=== PATIENT | female | born 1945 | race Caucasian/White ===

== ENCOUNTER 2022-06-19 17:15 | Inpatient (IN) ==
--- NOTE | 2022-06-19 18:23 | XRay Report ---
XR chest 1V not portable HISTORY: Generalized abdominal pain. bowel blockage COMPARISON: None. FINDINGS: No pneumothorax. No pleural effusions. The cardiac silhouette is top normal in size. No foc al lung consolidations to suggest a pneumonia. No evidence for pulmonary edema. There are surgical cl ips within the left upper quadrant. IMPRESSION: No acute process. ACT 112: Negative or not required by law. Electronically signed by: Lino Burton M.D. 06/19/2022 6:22 PM
[2022-06-19 18:24] LABS: Basophils # (auto) 0.02 K/uL (0-0.2); Basophils % (auto) 0.2 %; Hematocrit (blood only) 36.9 % (37.0-47.0); Immature Granulocytes # (auto) 0.06 K/uL (0.01-0.20); Immature Granulocytes % (auto) 0.5 %; Lymphocytes # (auto) 0.69 K/uL (1.2-3.4); Lymphocytes % (auto) 5.5 %; Mean Corpuscular Hemoglobin 28.7 pg (25.0-34.0); Mean Corpuscular Hgb Conc 35.2 g/dL (32.0-36.0); Mean Corpuscular Volume 81.5 fL (80.0-100.0); Mean Platelet Volume 9.9 fL (9.4-12.4); Monocytes # (auto) 0.52 K/uL (0.11-0.59); Monocytes % (auto) 4.1 %; Neutrophils # (auto) 11.37 K/uL (1.40-6.50); Neutrophils % (auto) 89.7 %; Platelet Count 325 K/uL (130-400); RDW Coefficient of Variation 11.9 % (11.5-14.5); RDW Standard Deviation 35.8 fL (36.4-46.3); Red Blood Count 4.53 M/uL (4.20-5.40); White Blood Count 12.66 K/ul (4.8-10.8)
[2022-06-19 18:42] LABS: Alanine Aminotransferase 16 U/L (7-52); Albumin Globulin Ratio 1.8 (0.9-2); Albumin Level 4.4 gm/dl (3.4-5.0); Alkaline Phosphatase 54 U/L (34-104); Anion Gap 9 (3-11); Aspartate Aminotransferase 22 U/L (13-39); BUN Creatinine Ratio 19.3 (10-20); Bilirubin,Total 1.6 mg/dl (0.2-1.0); Blood Urea Nitrogen 11 mg/dl (6-23); Calcium 8.4 mg/dl (8.6-10.3); Carbon Dioxide 24 mmol/L (21-32); Chloride 89 mmol/L (98-107); Est GFR (African American) 102.2 ml/min; Est GFR (Non-African American) 88.2 ml/min; Globulin 2.5 gm/dl (2.5-4.0); Glucose 141 mg/dl (70-99(Fasting)); Potassium 3.9 mmol/L (3.5-5.1); Sodium 122 mmol/L (136-145); Total Protein 6.9 gm/dl (6.0-8.3)
--- NOTE | 2022-06-19 19:21 | Emergency Department Note ---
Impression & Plan Acute hyponatremia, Nausea & vomiting, Constipation, Acute dehydration ED Provider Note NAME: JOSE SHANNON AGE: 77 SEX: F : 1945 ARRIVES VIA: Ambulance INFORMANT: Patient, ED PROVIDER(S): Telly Juan MD CHIEF COMPLAINT: Nausea vomiting MEDICAL DECISION MAKING: Patient presents due to concern for nausea vomiting acute relating that she has a blockage. After review of the patient's most recent ED visit from a year ago the patient did have constipation but no bowel obstruction. IV was established blood work was obtained the patient was noted to have hyponatremia. Patient has mild white count of 12 with a normal hemoglobin and platelet count. Kidney function is otherwise unremarkable. Sodium of 122. No priors for comparison. LFTs with mild elevation in bilirubin bilirubin 1.6. Lipase is not elevated. COVID-negative. Patient has a soft abdomen no current vomiting. Patient was ordered urine and serum awesome's as well as urine electrolytes. I did speak the on-call hospitalist Dr. Pace and the patient was admitted to the medicine service. Prior /Outside records reviewed: None Differential diagnosis: Gastroenteritis, food borne illness, infections, appendicitis, diverticulitis, inflammatory bowel disease, obstruction, GI bleed, biliary pathology, volvulus, as well as other pathologies. Diagnostics, as interpreted by me: ECG: None Cardiac monitoring: An order was placed for continuous cardiac monitoring. The monitor shows a rate of 77 with sinus rhythm. Patient was placed on pulse oximetry Medical decision rules: None Imaging studies: See below HPI: Patient presents due to concern for nausea and vomiting which occurred in the early afternoon around 5 PM. The patient had called a family member relating that she was having vomiting. The patient does relate that she thinks she has a "blockage." Patient states that she had not had a bowel movement approximately 3 days. The patient relates that when she was seen here in the emergency department last year the patient was given something and had improvement in her symptoms. The patient denies any prior surgery for blockage and is unsure as to whether not she is actually had a bowel obstruction. Patient denies any chest pains or shortness of breath. No known sick contacts or recent travel. No blood in the vomit. The patient did have multiple episodes of emesis and due to this concern with the family number had arrived ambulance was called and the patient did present here for further evaluation and treatment. No alcohol or tobacco use. No recent falls. The family ember did relate the patient was able to have a small bowel movement prior to arrival. PAST MEDICAL HISTORY: See Below PAST SURGICAL HISTORY: See Below SOCIAL HISTORY: See Below HOME MEDICATIONS: See Below ALLERGIES: See Below VITALS: See Below PHYSICAL EXAMINATION: GENERAL: NAD, wearing a mask, non-toxic. EYE EXAM: Normal conjunctiva. PERRL, no anisocoria and EOM's grossly intact w/o pain. NECK: Supple, no nuchal rigidity, no adenopathy, non-tender. No signs of meningismus. FROM of the neck with good chin to chest and neck extension. No stridor. LUNGS: Clear to auscultation. Normal chest wall mechanics. HEART: NSR, no MRG. ABDOMEN: Abdomen soft, non-tender, no masses, no rebound or guarding. BACK: No CVA TTP. SKIN: No rashes and no bruising. UPPER EXTREMITIES: Upper extremities are grossly normal. LOWER EXTREMITIES: Grossly normal, no edema. NEURO EXAM: A&O x3, cranial nerves II-XII grossly intact, normal speech, moves all 4 extremities. Past Med/Surg History Medical History Hyperlipidemia Osteoporosis Solitary kidney Surgical History History of colonoscopy History of hysterectomy History of kidney removal Left kidney. 1988 Family History Brother Stroke Mother Dementia Other Cancer Social History Smoking Status: Never smoker Smoking End Date: Quit >50 years ago. Prior reports smoked a few cigarettes intermittently; Second Hand Exposure: No; Hx Alcohol Use: No Hx Substance Use: No Preferred Language: Yi Communication Ability: Effective Environmental Engineering Manager Required: No Beliefs That Will Affect Care: None Current Living Situation: Spouse Other Information That Helps Us Care for You: No Feels Safe at Home: Yes Safety Concerns: Feels Safe At This Time Assistive Devices: Glasses Allergies Allergies Allergy/AdvReac Type Severity Reaction Status Date / Time No Known Allergies Allergy Unverified 06/10/21 16:02 Home Meds Home Medications Medication Instructions Recorded Confirmed alendronate 70 mg tablet 70 mg PO WK 06/10/21 06/19/22 calcium carbonate 500 mg calcium 500 mg PO QAM 06/10/21 06/19/22 (1,250 mg) tablet cholecalciferol (vitamin D3) 10 10 mcg PO QAM 06/10/21 06/19/22 mcg (400 unit) tablet (Vitamin D3) glucosamine sulf dipot 1 cap PO PM 06/10/21 06/19/22 chlr,msm,chond 550 mg-C 30 mg-adele 1 mg capsule (Glucosamine Chondroitin) lovastatin 40 mg tablet 40 mg PO DAILY 06/10/21 06/19/22 omega-3 fatty acids 1,000 mg 1,000 mg PO BID 06/10/21 06/19/22 capsule vitamin E 200 unit capsule 400 unit PO QAM 06/10/21 06/19/22 Results & Data (ED) Vital Signs Vital Signs - 24 hr 06/19/22 17:27 06/19/22 19:38 06/19/22 20:20 Temperature 36.4 C L Temperature Source Temporal Artery Scan Pulse Rate 74 Pulse Rate [Apical] 71 74 Respiratory Rate 20 15 18 Respiratory Effort / Characteristics Non-Labored Non-Labored Respiratory Depth Normal Blood Pressure 167/80 H Blood Pressure [Right Arm] 139/102 H 159/80 H Blood Pressure Mean 109 Blood Pressure Mean [Right Arm] 114 106 Blood Pressure Position [Right Arm] Pulse Oximetry 98 97 96 Oxygen Delivery Method Room Air Room Air Sepsis Recent Fever Within 48 Hours No Sepsis New/Unexplained Change in Mental Status N/A Sepsis Action Taken by Nursing No Action Required 06/19/22 19:33 06/19/22 22:05 06/19/22 22:16 Temperature Temperature Source Pulse Rate 71 Pulse Rate [Apical] 74 84 Respiratory Rate 12 18 Respiratory Effort / Characteristics Respiratory Depth Blood Pressure Blood Pressure [Right Arm] 163/86 H 164/80 H Blood Pressure Mean Blood Pressure Mean [Right Arm] 111 108 Blood Pressure Position [Right Arm] Lying Pulse Oximetry 97 97 Oxygen Delivery Method Room Air Room Air Sepsis Recent Fever Within 48 Hours Sepsis New/Unexplained Change in Mental Status Sepsis Action Taken by Halfway Medications Current Medication List: was personally reviewed by me Laboratory Data Attestation: I reviewed the patient's lab results. 06/19/22 17:45 04/05/23 17:45 Lab Results 06/19/22 06/19/22 06/19/22 Range/Units 17:45 17:45 17:45 WBC 12.66 H (4.8-10.8) K/ul RBC 4.53 (4.20-5.40) M/uL Hgb 13.0 (12.0-16.0) g/dl Hct 36.9 L (37.0-47.0) % MCV 81.5 (80.0-100.0) fL MCH 28.7 (25.0-34.0) pg MCHC 35.2 (32.0-36.0) g/dL RDW Std Deviation 35.8 L (36.4-46.3) fL RDW Coeff of Laureano 11.9 (11.5-14.5) % Plt Count 325 (130-400) K/uL MPV 9.9 (9.4-12.4) fL Immature Gran % (Auto) 0.5 % Neut % (Auto) 89.7 % Lymph % (Auto) 5.5 % Dickinson % (Auto) 4.1 % Eos % (Auto) 0.0 % Baso % (Auto) 0.2 % Neut # (Auto) 11.37 H (1.40-6.50) K/uL Lymph # (Auto) 0.69 L (1.2-3.4) K/uL Dickinson # (Auto) 0.52 (0.11-0.59) K/uL Eos # (Auto) 0.00 (0-0.50) K/uL Baso # (Auto) 0.02 (0-0.2) K/uL Immature Gran # (Auto) 0.06 (0.01-0.20) K/uL Sodium 122 L (136-145) mmol/L Potassium 3.9 (3.5-5.1) mmol/L Chloride 89 L (98-107) mmol/L Carbon Dioxide 24 (21-32) mmol/L Anion Gap 9 (3-11) BUN 11 (6-23) mg/dl Creatinine 0.57 L (0.6-1.2) mg/dl Est Cr Clr Drug Dosing Not Reportable Est GFR ( Amer) 102.2 ml/min Est GFR (Non-Af Amer) 88.2 ml/min BUN/Creatinine Ratio 19.3 (10-20) Glucose 141 H (70-99(Fasting)) mg/dl Estimat Average Glucose mg/dl Hemoglobin A1c (4.5-5.6) % Osmolality (280-300) mOsm/kg Calcium 8.4 L (8.6-10.3) mg/dl Magnesium 1.9 (1.7-2.4) mg/dl Total Bilirubin 1.6 H (0.2-1.0) mg/dl AST 22 (13-39) U/L ALT 16 (7-52) U/L Alkaline Phosphatase 54 (34-104) U/L Total Protein 6.9 (6.0-8.3) gm/dl Albumin 4.4 (3.4-5.0) gm/dl Globulin 2.5 (2.5-4.0) gm/dl Albumin/Globulin Ratio 1.8 (0.9-2) Lipase 8 L (11-82) U/L TSH 1.023 (0.300-4.500) uIu/ml Urine Color Urine Appearance (Clear) Urine pH (4.5-7.5) Ur Specific [place] (1.000-1.030) Urine Protein (Negative) Urine Glucose (UA) (Negative) Urine Ketones (Negative) Urine Blood (Negative) Urine Nitrite (Negative) Urine Bilirubin (Negative) Urine Urobilinogen (Negative) Ur Leukocyte Esterase (Negative) Urine WBC (Auto) (0-5) /hpf Urine RBC (Auto) (0-4) /hpf U Hyaline Cast (Auto) (0-5) /lpf U Epithel Cells (Auto) (0-5) /lpf Urine Bacteria (Auto) (Negative) Urine Osmolality (500-800) mOsm/kg Ur Random Sodium mmol/L SARS-CoV-2, RNA, NAAT (NEGATIVE) 06/19/22 06/19/22 06/19/22 Range/Units 17:45 17:54 19:36 WBC (4.8-10.8) K/ul RBC (4.20-5.40) M/uL Hgb (12.0-16.0) g/dl Hct (37.0-47.0) % MCV (80.0-100.0) fL MCH (25.0-34.0) pg MCHC (32.0-36.0) g/dL RDW Std Deviation (36.4-46.3) fL RDW Coeff of Laureano (11.5-14.5) % Plt Count (130-400) K/uL MPV (9.4-12.4) fL Immature Gran % (Auto) % Neut % (Auto) % Lymph % (Auto) % Dickinson % (Auto) % Eos % (Auto) % Baso % (Auto) % Neut # (Auto) (1.40-6.50) K/uL Lymph # (Auto) (1.2-3.4) K/uL Dickinson # (Auto) (0.11-0.59) K/uL Eos # (Auto) (0-0.50) K/uL Baso # (Auto) (0-0.2) K/uL Immature Gran # (Auto) (0.01-0.20) K/uL Sodium (136-145) mmol/L Potassium (3.5-5.1) mmol/L Chloride (98-107) mmol/L Carbon Dioxide (21-32) mmol/L Anion Gap (3-11) BUN (6-23) mg/dl Creatinine (0.6-1.2) mg/dl Est Cr Clr Drug Dosing Est GFR ( Amer) ml/min Est GFR (Non-Af Amer) ml/min BUN/Creatinine Ratio (10-20) Glucose (70-99(Fasting)) mg/dl Estimat Average Glucose 111 mg/dl Hemoglobin A1c 5.5 (4.5-5.6) % Osmolality 256 L (280-300) mOsm/kg Calcium (8.6-10.3) mg/dl Magnesium (1.7-2.4) mg/dl Total Bilirubin (0.2-1.0) mg/dl AST (13-39) U/L ALT (7-52) U/L Alkaline Phosphatase (34-104) U/L Total Protein (6.0-8.3) gm/dl Albumin (3.4-5.0) gm/dl Globulin (2.5-4.0) gm/dl Albumin/Globulin Ratio (0.9-2) Lipase (11-82) U/L TSH (0.300-4.500) uIu/ml Urine Color Urine Appearance (Clear) Urine pH (4.5-7.5) Ur Specific [place] (1.000-1.030) Urine Protein (Negative) Urine Glucose (UA) (Negative) Urine Ketones (Negative) Urine Blood (Negative) Urine Nitrite (Negative) Urine Bilirubin (Negative) Urine Urobilinogen (Negative) Ur Leukocyte Esterase (Negative) Urine WBC (Auto) (0-5) /hpf Urine RBC (Auto) (0-4) /hpf U Hyaline Cast (Auto) (0-5) /lpf U Epithel Cells (Auto) (0-5) /lpf Urine Bacteria (Auto) (Negative) Urine Osmolality (500-800) mOsm/kg Ur Random Sodium mmol/L SARS-CoV-2, RNA, NAAT NEGATIVE (NEGATIVE) 06/19/22 06/19/22 06/19/22 Range/Units 20:06 21:34 21:34 WBC (4.8-10.8) K/ul RBC (4.20-5.40) M/uL Hgb (12.0-16.0) g/dl Hct (37.0-47.0) % MCV (80.0-100.0) fL MCH (25.0-34.0) pg MCHC (32.0-36.0) g/dL RDW Std Deviation (36.4-46.3) fL RDW Coeff of Laureano (11.5-14.5) % Plt Count (130-400) K/uL MPV (9.4-12.4) fL Immature Gran % (Auto) % Neut % (Auto) % Lymph % (Auto) % Dickinson % (Auto) % Eos % (Auto) % Baso % (Auto) % Neut # (Auto) (1.40-6.50) K/uL Lymph # (Auto) (1.2-3.4) K/uL Dickinson # (Auto) (0.11-0.59) K/uL Eos # (Auto) (0-0.50) K/uL Baso # (Auto) (0-0.2) K/uL Immature Gran # (Auto) (0.01-0.20) K/uL Sodium (136-145) mmol/L Potassium (3.5-5.1) mmol/L Chloride (98-107) mmol/L Carbon Dioxide (21-32) mmol/L Anion Gap (3-11) BUN (6-23) mg/dl Creatinine (0.6-1.2) mg/dl Est Cr Clr Drug Dosing Est GFR ( Amer) ml/min Est GFR (Non-Af Amer) ml/min BUN/Creatinine Ratio (10-20) Glucose (70-99(Fasting)) mg/dl Estimat Average Glucose mg/dl Hemoglobin A1c (4.5-5.6) % Osmolality (280-300) mOsm/kg Calcium (8.6-10.3) mg/dl Magnesium Cancelled (1.7-2.4) mg/dl Total Bilirubin (0.2-1.0) mg/dl AST (13-39) U/L ALT (7-52) U/L Alkaline Phosphatase (34-104) U/L Total Protein (6.0-8.3) gm/dl Albumin (3.4-5.0) gm/dl Globulin (2.5-4.0) gm/dl Albumin/Globulin Ratio (0.9-2) Lipase Cancelled (11-82) U/L TSH (0.300-4.500) uIu/ml Urine Color Urine Appearance (Clear) Urine pH (4.5-7.5) Ur Specific [place] (1.000-1.030) Urine Protein (Negative) Urine Glucose (UA) (Negative) Urine Ketones (Negative) Urine Blood (Negative) Urine Nitrite (Negative) Urine Bilirubin (Negative) Urine Urobilinogen (Negative) Ur Leukocyte Esterase (Negative) Urine WBC (Auto) (0-5) /hpf Urine RBC (Auto) (0-4) /hpf U Hyaline Cast (Auto) (0-5) /lpf U Epithel Cells (Auto) (0-5) /lpf Urine Bacteria (Auto) (Negative) Urine Osmolality 338 L (500-800) mOsm/kg Ur Random Sodium 85 mmol/L SARS-CoV-2, RNA, NAAT (NEGATIVE) 06/19/22 Range/Units 21:34 WBC (4.8-10.8) K/ul RBC (4.20-5.40) M/uL Hgb (12.0-16.0) g/dl Hct (37.0-47.0) % MCV (80.0-100.0) fL MCH (25.0-34.0) pg MCHC (32.0-36.0) g/dL RDW Std Deviation (36.4-46.3) fL RDW Coeff of Laureano (11.5-14.5) % Plt Count (130-400) K/uL MPV (9.4-12.4) fL Immature Gran % (Auto) % Neut % (Auto) % Lymph % (Auto) % Dickinson % (Auto) % Eos % (Auto) % Baso % (Auto) % Neut # (Auto) (1.40-6.50) K/uL Lymph # (Auto) (1.2-3.4) K/uL Dickinson # (Auto) (0.11-0.59) K/uL Eos # (Auto) (0-0.50) K/uL Baso # (Auto) (0-0.2) K/uL Immature Gran # (Auto) (0.01-0.20) K/uL Sodium (136-145) mmol/L Potassium (3.5-5.1) mmol/L Chloride (98-107) mmol/L Carbon Dioxide (21-32) mmol/L Anion Gap (3-11) BUN (6-23) mg/dl Creatinine (0.6-1.2) mg/dl Est Cr Clr Drug Dosing Est GFR ( Amer) ml/min Est GFR (Non-Af Amer) ml/min BUN/Creatinine Ratio (10-20) Glucose (70-99(Fasting)) mg/dl Estimat Average Glucose mg/dl Hemoglobin A1c (4.5-5.6) % Osmolality (280-300) mOsm/kg Calcium (8.6-10.3) mg/dl Magnesium (1.7-2.4) mg/dl Total Bilirubin (0.2-1.0) mg/dl AST (13-39) U/L ALT (7-52) U/L Alkaline Phosphatase (34-104) U/L Total Protein (6.0-8.3) gm/dl Albumin (3.4-5.0) gm/dl Globulin (2.5-4.0) gm/dl Albumin/Globulin Ratio (0.9-2) Lipase (11-82) U/L TSH (0.300-4.500) uIu/ml Urine Color Yellow Urine Appearance Clear (Clear) Urine pH >= 9.0 H (4.5-7.5) Ur Specific [place] 1.010 (1.000-1.030) Urine Protein Negative (Negative) Urine Glucose (UA) Negative (Negative) Urine Ketones 1+ H (Negative) Urine Blood Negative (Negative) Urine Nitrite Negative (Negative) Urine Bilirubin Negative (Negative) Urine Urobilinogen Negative (Negative) Ur Leukocyte Esterase 3+ H (Negative) Urine WBC (Auto) 1-5 (0-5) /hpf Urine RBC (Auto) 5-10 H (0-4) /hpf U Hyaline Cast (Auto) 0 (0-5) /lpf U Epithel Cells (Auto) >30 H (0-5) /lpf Urine Bacteria (Auto) Negative (Negative) Urine Osmolality (500-800) mOsm/kg Ur Random Sodium mmol/L SARS-CoV-2, RNA, NAAT (NEGATIVE) Administered Medications Sodium Chloride (Nss 1000ml) 1,000 mls @ 75 mls/hr IV .[id number] ONE Stop: 06/20/22 12:49 Last Admin: 06/19/22 23:51 Dose: 75 mls/hr Documented By: SACHIN Discontinued Medications Sodium Chloride (Nss 1000ml) 500 mls @ 999 mls/hr IV .[id number] ONE Stop: 06/19/22 20:03 Last Infusion: 06/19/22 20:18 Dose: 0 mls/hr Documented By: Admin: 06/19/22 19:44 Dose: 999 mls/hr Documented By: SACHIN Calcium Gluconate () 1,000 mg in 60 mls @ 240 mls/hr IV NOW STA Stop: 06/19/22 21:59 Last Infusion: 06/19/22 22:34 Dose: 0 mls/hr Documented By: Admin: 06/19/22 22:19 Dose: 240 mls/hr Documented By: SACHIN Promethazine HCl (Phenergan) 12.5 mg in 50.5 mls @ 202 mls/hr IV NOW STA Stop: 06/19/22 22:54 Last Infusion: 06/19/22 23:09 Dose: 0 mls/hr Documented By: Admin: 06/19/22 22:53 Dose: 202 mls/hr Documented By: SACHIN Piperacillin Sod/Tazobactam Sod (Zosyn) 4.5 gm in 120 mls @ 240 mls/hr IV NOW STA Stop: 06/19/22 23:10 Last Infusion: 06/19/22 23:44 Dose: 0 mls/hr Documented By: Admin: 06/19/22 23:14 Dose: 240 mls/hr Documented By: SACHIN Ioversol (Optiray 350 100ml) 85 ml IV ONCE ONE Stop: 06/19/22 22:07 Last Admin: 06/19/22 22:07 Dose: 85 ml Documented By: KULDIP Senna/Docusate Sodium (Docusate Sodium/Senna 50/8.6mg Tab) 1 tab PO ONE STA Stop: 06/19/22 22:42 Last Admin: 06/19/22 23:30 Dose: Not Given Documented By: SACHIN Imaging Data Radiologist's Impression: Chest X-Ray 06/19/22 17:31 XR chest 1V not portable HISTORY: Generalized abdominal pain. bowel blockage COMPARISON: None. FINDINGS: No pneumothorax. No pleural effusions. The cardiac silhouette is top normal in size. No focal lung consolidations to suggest a pneumonia. No evidence for pulmonary edema. There are surgical clips within the left upper quadrant. IMPRESSION: No acute process. ACT 112: Negative or not required by law. Electronically signed by: Lino Burton M.D. 06/19/2022 6:22 PM Abdomen/Pelvis CT 06/19/22 21:42 Exam(s): CT ABDOMEN + PELVIS With Contrast EXAM: CT Abdomen and Pelvis With Intravenous Contrast CLINICAL HISTORY: Reason for exam: abd pain. TECHNIQUE: Axial computed tomography images of the abdomen and pelvis with intravenous contrast. CTDI is 7.51 mGy and DLP is 380.05 mGy-cm. Automated exposure control was utilized for the study. A dose lowering technique was utilized adhering to the principles of ALARA. CONTRAST: Contrast must be dictated COMPARISON: No relevant prior studies available. FINDINGS: Lung bases: Unremarkable. No mass. No consolidation. ABDOMEN: Liver: Hepatic cystic lesion in the dome measures 3.1 x 3.6 cm. Gallbladder and bile ducts: Unremarkable. No calcified stones. No ductal dilation. Pancreas: Unremarkable. No mass. No ductal dilation. Spleen: Unremarkable. No splenomegaly. Adrenals: Unremarkable. No mass. Kidneys and ureters: Left nephrectomy. Stomach and bowel: Wall thickening of the rectum, correlate for proctitis. Mild diarrheal disease. No obstruction. PELVIS: Appendix: No findings to suggest acute appendicitis. Bladder: Unremarkable. No mass. Reproductive: Unremarkable as visualized. ABDOMEN and PELVIS: Intraperitoneal space: Unremarkable. No free air. No significant fluid collection. Bones/joints: Levoconvex scoliosis. Degenerative changes of the spine. No acute fracture. No dislocation. Soft tissues: Unremarkable. Vasculature: Atherosclerotic changes of the aorta. No abdominal aortic aneurysm. Lymph nodes: Unremarkable. No enlarged lymph nodes. IMPRESSION: 1. Wall thickening of the rectum, correlate for proctitis. Mild diarrheal disease. 2. Left nephrectomy. Electronically signed by: Bubba Patton MD 06/19/22 22:[address] 06/19/22 21:42 Exam(s): CT HEAD Without Contrast EXAM: CT Head Without Intravenous Contrast CLINICAL HISTORY: Reason for exam: santana, staggering gait. TECHNIQUE: Axial computed tomography images of the head/brain without intravenous contrast. CTDI is oh 35.84 mGy and DLP is 537.48 mGy-cm. Automated exposure control was utilized for the study. A dose lowering technique was utilized adhering to the principles of ALARA. COMPARISON: No relevant prior studies available. FINDINGS: No acute intracranial hemorrhage. No midline shift or mass effect. The territorial arredondo-white matter differentiation is maintained throughout. Age-related cerebral volume loss. Periventricular and subcortical white matter hypoattenuation, consistent with chronic microangiopathy. The visualized orbits appear grossly unremarkable. The calvarium is intact. The visualized paranasal sinuses and mastoid air cells are grossly clear. IMPRESSION: No acute intracranial hemorrhage, midline shift, or mass effect. Electronically signed by: Bubba Patton MD 06/19/22 22:19 PM Discharge Plan Visit Data Chief Complaint: Illness Stated Complaint: ILLNESS ED Provider: Telly Juan Discharge Problem: Acute hyponatremia, Nausea & vomiting, Constipation, Acute dehydration Discharge Instructions Interventions: ED Discharge Assessment Last Done: 06/19/22 23:44
[2022-06-19] MEDS ORDERED: SODIUM CHLORIDE 0.9% 1000ML 500 ML IV ONE (19:33)
--- NOTE | 2022-06-19 20:18 | History & Physical Report ---
Date of Service June 19, 2022 Assessment & Plan (1) Altered mental status: (2) Nausea & vomiting: (3) Acute hyponatremia: (4) Solitary kidney: (5) Hyperlipidemia: Plan: Assessment and plan per Dr. Pace. See addendum History of Present Illness Chief Complaint: N/V Primary Care Provider: Kathy Manriquez MD Patient is 77-year-old female with PMH dyslipidemia, osteoporosis, single kidney presented to ER with complaint of nausea, vomiting. Limited history obtained from patient secondary to her current confusion. Assistance of history from patient's [id number] who is at bedside. Reports that patient's was admitted at [facility] yesterday and had hernia surgery. Patient and sister in law were at hospital all day yesterday. [id number] reports patient seemed at her baseline yesterday and was not having any confusion. Patient states that she has been worried and stressed with her 's recent hospitalization. Does report patient had lunch and dinner yesterday reports did not drink water yesterday while here at the hospital but did have 2 cups of coffee. Today patient states that she had sudden onset of nausea and several episodes of vomiting. Patient is unable to quantify the amount of vomiting. She reports emesis appeared clear and did not notice any hematemesis. Patient concerned that she has a "blockage". She states 1 year ago had "blockage" and was seen in ER. Upon reviewing those notes patient had constipation noted on KUB and was discharged on magnesium citrate. Patient states this morning was having some lower abdominal cramping. She reports her last BM was 2 days ago. Currently with patient's confusion she is unable to tell me if she had any bowel movements today, however her [id number] reports that this morning patient said that she took magnesium citrate and had bowel movement of loose stool mixed with hard stool balls. Patient reports that she was off balance today. [id number] confirms that she was off balance when she came to pick her up today. Patient does not think she had any falls. Denies any current headache however states she thinks she had a headache yesterday that she thought was secondary to eating lunch late. Patient unable to tell me if she has any visual disturbance, loss of vision, diplopia, she just keeps saying that she was off balance today. It is unclear if patient has had dizziness or lightheadedness as when asked she keeps saying she is "off balance". Patient does not think she has had syncope or LOC. Patient does not think that she has had any extremity weakness or paresthesias but keeps repeating that she is off balance and just feels generally tired. Unable to assess if patient has had any urinary symptoms. Denies ill contacts. Denies fever/chills, diaphoresis, hematemesis, melena, hematochezia, neck pain, CP, SOB, cough, sore throat, choking, otalgia, rhinorrhea, paresthesias, extremity edema. In ER patient afebrile, vital stable. CXR: No acute infiltrate. Sodium of 122, WBC: 12.6. Negative SARS-CoV-2. No UA or CT head obtained yet. ER physician request evaluation for admission. Allergies Allergy/AdvReac Type Severity Reaction Status Date / Time No Known Allergies Allergy Unverified 06/10/21 16:02 Home Medications Medication Instructions Recorded Confirmed Type alendronate 70 mg tablet 70 mg PO WK 06/10/21 06/19/22 History calcium carbonate 500 mg calcium 500 mg PO QAM 06/10/21 06/19/22 History (1,250 mg) tablet cholecalciferol (vitamin D3) 10 10 mcg PO QAM 06/10/21 06/19/22 History mcg (400 unit) tablet (Vitamin D3) glucosamine sulf dipot 1 cap PO PM 06/10/21 06/19/22 History chlr,msm,chond 550 mg-C 30 mg-adele 1 mg capsule (Glucosamine Chondroitin) lovastatin 40 mg tablet 40 mg PO DAILY 06/10/21 06/19/22 History omega-3 fatty acids 1,000 mg 1,000 mg PO BID 06/10/21 06/19/22 History capsule vitamin E 200 unit capsule 400 unit PO QAM 06/10/21 06/19/22 History Past Med/Surg History Medical History Hyperlipidemia Osteoporosis Solitary kidney Surgical History History of colonoscopy History of hysterectomy History of kidney removal Left kidney. 1987 Family History Brother Stroke Mother Dementia Other Cancer Social History Smoking Status: Never smoker Smoking End Date: Quit >50 years ago. Prior reports smoked a few cigarettes intermittently; Second Hand Exposure: No; Hx Alcohol Use: No Hx Substance Use: No Preferred Language: Ukrainian Communication Ability: Effective Setup Technician Required: No Beliefs That Will Affect Care: None Current Living Situation: Spouse Other Information That Helps Us Care for You: No Feels Safe at Home: Yes Safety Concerns: Feels Safe At This Time Assistive Devices: Glasses Review of Systems Review of Systems: All systems reviewed & are unremarkable except as noted in HPI & below Physical Exam Physical Exam: General: no distress, WDWN Head: normocephalic, atraumatic Eyes: PERRL, EOM's intact, conjunctiva non-injected, anicteric ENT: normal inspection external ears, nose, mucous membranes moist Neck: supple, trachea midline Lungs: clear, no respiratory distress, no wheezing/rhonchi/rales CV: RRR, no murmur, no pretibial edema Abd: normal BS, soft, non-tender to palpation Ext: no cyanosis, no calf tenderness Neuro: Alert, Oriented to person, place. Noted difficulty expressing her thoughts and has difficulty staying on subject. Repeats same statements. no focal deficits noted on exam, somewhat anxious affect Skin: warm, dry Results & Data Results & Data Vital Signs (Past 12 Hours) Vital Signs Temp Pulse Pulse Resp BP BP Pulse Ox 06/19/22 19:38 71 15 139/102 H 97 06/19/22 17:27 36.4 C L 74 20 167/80 H 98 O2 Del Method 06/19/22 19:38 Room Air 06/19/22 17:27 Room Air Laboratory Results Short CBC 06/19/22 Range/Units 17:45 WBC 12.66 H (4.8-10.8) K/ul Hgb 13.0 (12.0-16.0) g/dl Hct 36.9 L (37.0-47.0) % Plt Count 325 (130-400) K/uL BMP 06/19/22 17:45 Sodium 122 L Potassium 3.9 Chloride 89 L Carbon Dioxide 24 BUN 11 Creatinine 0.57 L Glucose 141 H Calcium 8.4 L Liver Function 06/19/22 Range/Units 17:45 Total Bilirubin 1.6 H (0.2-1.0) mg/dl AST 22 (13-39) U/L ALT 16 (7-52) U/L Alkaline Phosphatase 54 (34-104) U/L Albumin 4.4 (3.4-5.0) gm/dl Diagnostic Findings Chest X-Ray 06/19/22 17:31 XR chest 1V not portable HISTORY: Generalized abdominal pain. bowel blockage COMPARISON: None. FINDINGS: No pneumothorax. No pleural effusions. The cardiac silhouette is top normal in size. No focal lung consolidations to suggest a pneumonia. No evidence for pulmonary edema. There are surgical clips within the left upper quadrant. IMPRESSION: No acute process. ACT 112: Negative or not required by law. Electronically signed by: Lino Burton M.D. 06/19/2022 6:22 PM Supervising Physician Co-Signing Physician Notes IM ATTENDING : Patient seen and examined. History obtained from patient and records. Preceding documentation by Ms. Grace Perkins PA-C reviewed. In addition, Abnormal UA and imaging noted as follows. Laboratory Results WBC 12.66 K/ul (4.8-10.8) H 06/19/22 17:45 RBC 4.53 M/uL (4.20-5.40) 06/19/22 17:45 Hgb 13.0 g/dl (12.0-16.0) 06/19/22 17:45 Hct 36.9 % (37.0-47.0) L 06/19/22 17:45 MCV 81.5 fL (80.0-100.0) 06/19/22 17:45 MCH 28.7 pg (25.0-34.0) 06/19/22 17:45 MCHC 35.2 g/dL (32.0-36.0) 06/19/22 17:45 RDW Std Deviation 35.8 fL (36.4-46.3) L 06/19/22 17:45 RDW Coeff of [place] 11.9 % (11.5-14.5) 06/19/22 17:45 Plt Count 325 K/uL (130-400) 06/19/22 17:45 MPV 9.9 fL (9.4-12.4) 06/19/22 17:45 Immature Gran % (Auto) 0.5 % 06/19/22 17:45 Neut % (Auto) 89.7 % 06/19/22 17:45 Lymph % (Auto) 5.5 % 06/19/22 17:45 [place] % (Auto) 4.1 % 06/19/22 17:45 Eos % (Auto) 0.0 % 06/19/22 17:45 Baso % (Auto) 0.2 % 06/19/22 17:45 Neut # (Auto) 11.37 K/uL (1.40-6.50) H 06/19/22 17:45 Lymph # (Auto) 0.69 K/uL (1.2-3.4) L 06/19/22 17:45 [place] # (Auto) 0.52 K/uL (0.11-0.59) 06/19/22 17:45 Eos # (Auto) 0.00 K/uL (0-0.50) 06/19/22 17:45 Baso # (Auto) 0.02 K/uL (0-0.2) 06/19/22 17:45 Immature Gran # (Auto) 0.06 K/uL (0.01-0.20) 06/19/22 17:45 Sodium 122 mmol/L (136-145) L 06/19/22 17:45 Potassium 3.9 mmol/L (3.5-5.1) 06/19/22 17:45 Chloride 89 mmol/L (98-107) L 06/19/22 17:45 Carbon Dioxide 24 mmol/L (21-32) 06/19/22 17:45 Anion Gap 9 (3-11) 06/19/22 17:45 BUN 11 mg/dl (6-23) 06/19/22 17:45 Creatinine 0.57 mg/dl (0.6-1.2) L 06/19/22 17:45 Est Cr Clr Drug Dosing Not Reportable 06/19/22 17:45 Est GFR ( Amer) 102.2 ml/min 06/19/22 17:45 Est GFR (Non-Af Amer) 88.2 ml/min 06/19/22 17:45 BUN/Creatinine Ratio 19.3 (10-20) 06/19/22 17:45 Glucose 141 mg/dl (70-99(Fasting)) H 06/19/22 17:45 Estimat Average Glucose 111 mg/dl 06/19/22 17:45 Hemoglobin A1c 5.5 % (4.5-5.6) 06/19/22 17:45 Osmolality 256 mOsm/kg (280-300) L 06/19/22 17:54 Calcium 8.4 mg/dl (8.6-10.3) L 06/19/22 17:45 Magnesium Cancelled 06/19/22 20:06 Total Bilirubin 1.6 mg/dl (0.2-1.0) H 06/19/22 17:45 AST 22 U/L (13-39) 06/19/22 17:45 ALT 16 U/L (7-52) 06/19/22 17:45 Alkaline Phosphatase 54 U/L (34-104) 06/19/22 17:45 Total Protein 6.9 gm/dl (6.0-8.3) 06/19/22 17:45 Albumin 4.4 gm/dl (3.4-5.0) 06/19/22 17:45 Globulin 2.5 gm/dl (2.5-4.0) 06/19/22 17:45 Albumin/Globulin Ratio 1.8 (0.9-2) 06/19/22 17:45 Lipase Cancelled 06/19/22 20:06 TSH 1.023 uIu/ml (0.300-4.500) 06/19/22 17:45 Urine Color Yellow 06/19/22 21:34 Urine Appearance Clear (Clear) 06/19/22 21:34 Urine pH >= 9.0 (4.5-7.5) H 06/19/22 21:34 Ur Specific [place] 1.010 (1.000-1.030) 06/19/22 21:34 Urine Protein Negative (Negative) 06/19/22 21:34 Urine Glucose (UA) Negative (Negative) 06/19/22 21:34 Urine Ketones 1+ (Negative) H 06/19/22 21:34 Urine Blood Negative (Negative) 06/19/22 21:34 Urine Nitrite Negative (Negative) 06/19/22 21:34 Urine Bilirubin Negative (Negative) 06/19/22 21:34 Urine Urobilinogen Negative (Negative) 06/19/22 21:34 Ur Leukocyte Esterase 3+ (Negative) H 06/19/22 21:34 Urine WBC (Auto) 1-5 /hpf (0-5) 06/19/22 21:34 Urine RBC (Auto) 5-10 /hpf (0-4) H 06/19/22 21:34 U Hyaline Cast (Auto) 0 /lpf (0-5) 06/19/22 21:34 U Epithel Cells (Auto) >30 /lpf (0-5) H 06/19/22 21:34 Urine Bacteria (Auto) Negative (Negative) 06/19/22 21:34 SARS-CoV-2, RNA, NAAT NEGATIVE (NEGATIVE) 06/19/22 19:36 Impressions Chest X-Ray 06/19/22 17:31 XR chest 1V not portable HISTORY: Generalized abdominal pain. bowel blockage COMPARISON: None. FINDINGS: No pneumothorax. No pleural effusions. The cardiac silhouette is top normal in size. No focal lung consolidations to suggest a pneumonia. No evidence for pulmonary edema. There are surgical clips within the left upper quadrant. IMPRESSION: No acute process. ACT 112: Negative or not required by law. Electronically signed by: Lino Burton M.D. 06/19/2022 6:22 PM Abdomen/Pelvis CT 06/19/22 21:42 Exam(s): CT ABDOMEN + PELVIS With Contrast EXAM: CT Abdomen and Pelvis With Intravenous Contrast CLINICAL HISTORY: Reason for exam: abd pain. TECHNIQUE: Axial computed tomography images of the abdomen and pelvis with intravenous contrast. CTDI is 7.51 mGy and DLP is 380.05 mGy-cm. Automated exposure control was utilized for the study. A dose lowering technique was utilized adhering to the principles of ALARA. CONTRAST: Contrast must be dictated COMPARISON: No relevant prior studies available. FINDINGS: Lung bases: Unremarkable. No mass. No consolidation. ABDOMEN: Liver: Hepatic cystic lesion in the dome measures 3.1 x 3.6 cm. Gallbladder and bile ducts: Unremarkable. No calcified stones. No ductal dilation. Pancreas: Unremarkable. No mass. No ductal dilation. Spleen: Unremarkable. No splenomegaly. Adrenals: Unremarkable. No mass. Kidneys and ureters: Left nephrectomy. Stomach and bowel: Wall thickening of the rectum, correlate for proctitis. Mild diarrheal disease. No obstruction. PELVIS: Appendix: No findings to suggest acute appendicitis. Bladder: Unremarkable. No mass. Reproductive: Unremarkable as visualized. ABDOMEN and PELVIS: Intraperitoneal space: Unremarkable. No free air. No significant fluid collection. Bones/joints: Levoconvex scoliosis. Degenerative changes of the spine. No acute fracture. No dislocation. Soft tissues: Unremarkable. Vasculature: Atherosclerotic changes of the aorta. No abdominal aortic aneurysm. Lymph nodes: Unremarkable. No enlarged lymph nodes. IMPRESSION: 1. Wall thickening of the rectum, correlate for proctitis. Mild diarrheal disease. 2. Left nephrectomy. Electronically signed by: Bubba Patton MD 06/19/22 22:[address] 06/19/22 21:42 Exam(s): CT HEAD Without Contrast EXAM: CT Head Without Intravenous Contrast CLINICAL HISTORY: Reason for exam: santana, staggering gait. TECHNIQUE: Axial computed tomography images of the head/brain without intravenous contrast. CTDI is oh 35.84 mGy and DLP is 537.48 mGy-cm. Automated exposure control was utilized for the study. A dose lowering technique was utilized adhering to the principles of ALARA. COMPARISON: No relevant prior studies available. FINDINGS: No acute intracranial hemorrhage. No midline shift or mass effect. The territorial arredondo-white matter differentiation is maintained throughout. Age-related cerebral volume loss. Periventricular and subcortical white matter hypoattenuation, consistent with chronic microangiopathy. The visualized orbits appear grossly unremarkable. The calvarium is intact. The visualized paranasal sinuses and mastoid air cells are grossly clear. IMPRESSION: No acute intracranial hemorrhage, midline shift, or mass effect. Electronically signed by: Bubba Patton MD 06/19/22 22:19 PM FINAL ASSESSMENT AND PLAN as follows : Encephalopathy Multifactorial Hyponatremia Uncontrolled hypertension, initial SBP of 200s upon arrival at the ER, possible chronic BP elevation given cardiomegaly on CXR Complicated UTI/proctitis on CT, no sepsis for now hyperlipidemia, not on rx Hyperglycemia rule out DM Medical telemetry careful correction of sodium May need Nephrology consult Initiate lisinopril Urine CS, Zosyn bowel regimen Check hemoglobin A1c PT OT eval once medically stable DVT prophylaxis. Lovenox subcu Full code Patient requesting for [id number] to be updated of her progress. Ms. Samra Purcell, contact #[phone]. Text document was generated using [employer] recognition software. It may contain grammatical or spelling errors. Kindly contact undersigned for clarification of any documentation item in question.
[2022-06-19 20:33] LABS: Lipase 8 U/L (11-82); Magnesium 1.9 mg/dl (1.7-2.4)
[2022-06-19] MEDS ORDERED: CALCIUM GLUCONATE 1,000 MG/60 ML BAG IV STA (21:45)
[2022-06-19] MEDS ORDERED: OPTIRAY 350 100ml IV ONE (22:06)
[2022-06-19 22:16] LABS: Estimated Average Glucose 111 mg/dl; Hemoglobin A1C 5.5 % (4.5-5.6)
--- NOTE | 2022-06-19 22:20 | CT Scan Report ---
Exam(s): CT HEAD Without Contrast EXAM: CT Head Without Intravenous Contrast CLINICAL HISTORY: Reason for exam: santana, staggering gait. TECHNIQUE: Axial computed tomography images of the head/brain without intravenous contrast. CTDI is oh 35.84 mGy and DLP is 537.48 mGy-cm. Automated exposure control was utilized for the study. A dose lowering technique was utilized adhering to the principles of ALARA. COMPARISON: No relevant prior studies available. FINDINGS: No acute intracranial hemorrhage. No midline shift or mass effect. The territorial arredondo-white matter differentiation is maintained throughout. Age-related cerebral volume loss. Periventricular and subcortical white matter hypoattenuation, consistent with chronic microangiopathy. The visualized orbits appear grossly unremarkable. The calvarium is intact. The visualized paranasal sinuses and mastoid air cells are grossly clear. IMPRESSION: No acute intracranial hemorrhage, midline shift, or mass effect. Electronically signed by: Bubba Patton MD 06/19/22 22:19 PM
[2022-06-19 22:22] LABS: Appearance Urine Clear (Clear); Bacteria Urine Automated Negative (Negative); Bilirubin Urine Negative (Negative); Blood Urine Negative (Negative); Cast Urine Automated 0 /lpf (0-5); Color Urine Yellow; Epithelial Cell Urine Auto >30 /lpf (0-5); Glucose Urine UA Negative (Negative); Ketones Urine 1+ (Negative); Leukocyte Esterase Urine 3+ (Negative); Nitrite Urine Negative (Negative); Protein Urine Negative (Negative); Urobilinogen Urine Negative (Negative); pH Urine >= 9.0 (4.5-7.5)
[2022-06-19] MEDS ORDERED: PROMETHAZINE HCL 12.5 MG in SODIUM CHLORIDE 0.9% 50 ML IV PRN (22:22)
--- NOTE | 2022-06-19 22:23 | CT Scan Report ---
Exam(s): CT ABDOMEN + PELVIS With Contrast EXAM: CT Abdomen and Pelvis With Intravenous Contrast CLINICAL HISTORY: Reason for exam: abd pain. TECHNIQUE: Axial computed tomography images of the abdomen and pelvis with intravenous contrast. CTDI is 7.51 mGy and DLP is 380.05 mGy-cm. Automated exposure control was utilized for the study. A dose lowering technique was utilized adhering to the principles of ALARA. CONTRAST: Contrast must be dictated COMPARISON: No relevant prior studies available. FINDINGS: Lung bases: Unremarkable. No mass. No consolidation. ABDOMEN: Liver: Hepatic cystic lesion in the dome measures 3.1 x 3.6 cm. Gallbladder and bile ducts: Unremarkable. No calcified stones. No ductal dilation. Pancreas: Unremarkable. No mass. No ductal dilation. Spleen: Unremarkable. No splenomegaly. Adrenals: Unremarkable. No mass. Kidneys and ureters: Left nephrectomy. Stomach and bowel: Wall thickening of the rectum, correlate for proctitis. Mild diarrheal disease. No obstruction. PELVIS: Appendix: No findings to suggest acute appendicitis. Bladder: Unremarkable. No mass. Reproductive: Unremarkable as visualized. ABDOMEN and PELVIS: Intraperitoneal space: Unremarkable. No free air. No significant fluid collection. Bones/joints: Levoconvex scoliosis. Degenerative changes of the spine. No acute fracture. No dislocation. Soft tissues: Unremarkable. Vasculature: Atherosclerotic changes of the aorta. No abdominal aortic aneurysm. Lymph nodes: Unremarkable. No enlarged lymph nodes. IMPRESSION: 1. Wall thickening of the rectum, correlate for proctitis. Mild diarrheal disease. 2. Left nephrectomy. Electronically signed by: Bubba Patton MD 06/19/22 22:22 PM
[2022-06-19] MEDS ORDERED: POLYETHYLENE (MIRALAX) 17 GM PACK PO PRN (22:28)
[2022-06-19] MEDS ORDERED: PROMETHAZINE 12.5 MG/50.5 ML BAG IV STA (22:40)
[2022-06-19] MEDS ORDERED: PIPERACILLIN/TAZOBACTAM 4.5 GM/120 ML BAG IV STA (22:41)
[2022-06-19] MEDS ORDERED: DOCUSATE SODIUM/SENNA 50/8.6MG TAB PO STA (22:41)
[2022-06-19] MEDS ORDERED: ONDANSETRON INJ 2 MG/ML 2 ML VIAL IV PRN (23:29)
[2022-06-19] MEDS ORDERED: SODIUM CHLORIDE 0.9% 1000ML 1,000 ML IV ONE (23:30)
[2022-06-19] MEDS ORDERED: ACETAMINOPHEN 325 MG TAB PO PRN (23:44)
[2022-06-19] MEDS ORDERED: oxyCODONE HCL IR 5 MG TAB (IMMEDIATE RELEASE) PO PRN (23:44)
[2022-06-20] MEDS: lisinopril 2.5 MG TAB PO SCH ×2 (00:55→20:41)
[2022-06-20] MEDS: PIPERACILLIN/TAZOBACTAM 3.375 GM in DEXTROSE 5% 100 ML IV SCH ×3 (05:50→22:14)
[2022-06-20 06:37] LABS: Basophils # (auto) 0.02 K/uL (0-0.2); Basophils % (auto) 0.2 %; Eosinophils # (auto) 0.08 K/uL (0-0.50); Hematocrit (blood only) 35.6 % (37.0-47.0); Hemoglobin 12.7 g/dl (12.0-16.0); Immature Granulocytes # (auto) 0.03 K/uL (0.01-0.20); Immature Granulocytes % (auto) 0.4 %; Lymphocytes # (auto) 1.58 K/uL (1.2-3.4); Lymphocytes % (auto) 18.8 %; Mean Corpuscular Hemoglobin 29.3 pg (25.0-34.0); Mean Corpuscular Hgb Conc 35.7 g/dL (32.0-36.0); Mean Platelet Volume 9.4 fL (9.4-12.4); Monocytes # (auto) 1.04 K/uL (0.11-0.59); Monocytes % (auto) 12.4 %; Neutrophils # (auto) 5.66 K/uL (1.40-6.50); Neutrophils % (auto) 67.2 %; Platelet Count 310 K/uL (130-400); RDW Coefficient of Variation 11.9 % (11.5-14.5); RDW Standard Deviation 36.4 fL (36.4-46.3); Red Blood Count 4.34 M/uL (4.20-5.40); White Blood Count 8.41 K/ul (4.8-10.8)
[2022-06-20 06:56] LABS: BUN Creatinine Ratio 13.6 (10-20); Calcium 8.2 mg/dl (8.6-10.3); Creatinine Clr Calc Pharmacy 66.3 ml/min; Est GFR (Non-African American) 87.2 ml/min; Potassium 3.6 mmol/L (3.5-5.1)
[2022-06-20] MEDS ORDERED: DEXTROSE 5% 1,000 ML IV ONE (07:01)
[2022-06-20] MEDS: ENOXAPARIN INJ 40 MG/0.4 ML SYR SQ SCH (09:51)
[2022-06-20] MEDS: LOVASTATIN 20 MG TAB PO SCH (09:51)
[2022-06-20] MEDS: DOCUSATE SODIUM/SENNA 50/8.6MG TAB PO SCH (09:51)
--- NOTE | 2022-06-20 15:21 | Hospitalist Progress Note ---
Date of Service June 20, 2022 Assessment & Plan (1) Altered mental status: (2) Nausea & vomiting: (3) Acute hyponatremia: (4) Solitary kidney: (5) Hyperlipidemia: Plan: Acute metabolic encephalopathy Likely Multifactorial--hyponatremia, dehydration, suspected UTI -- CT head:No acute intracranial hemorrhage, midline shift, or mass effect. Mental status seem to be back to baseline Monitor Hypoosmolar hyponatremia Likely due to dehydration ? SIADH Sodium 122>>130>>132 Normal TSH High urine osmolality, urine sodium Sodium levels rapidly corrected after IV fluids Patient to minimize overcorrection, started on IV D5 water Monitor sodium levels closely Check AM cortisol Hypertensive urgency BP Variable Started on Lisinopril 2.5mg daily Monitor Suspected UTI/proctitis Likely proctitis secondary to constipation -CT ABD:Wall thickening of the rectum, correlate for proctitis. Mild diarrheal disease. -Urine Culture pending -Currently on Zosyn Will obtain stool studies if recurrence of diarrhea Continue bowel regimen to prevent constipation HLP on Statin DVT Px: Lovenox SQ Code Status Full code Admission and Anticipated Discharge Date Admission Date: June 19, 2022 Subjective Patient is seen and examined at bedside Mental status back to baseline Eager to get discharged Denies any chest pain, dyspnea, dizziness, nausea, abdominal pain Also denies any diarrhea, dysuria Reports constipation prior to admission which currently resolved No other complaints Review of Systems Review of Systems: All systems reviewed & are unremarkable except as noted in Subjective Physical Exam Physical Exam: Physical Exam: Vitals signs as noted above General Appearance:Moderately built and nourished, no apparent distress Head: normocephalic, Atraumatic Eyes: normal inspection, EOMI Neck: supple, Trachea midline Respiratory/Chest: Normal breath sounds, CTA, No accessory muscle use Cardiovascular: S1, S2, No murmur Abdomen/GI:Soft, Non tender, Bowel sounds present Extremities/Musculoskeletal:normal inspection, no edema Neurologic/Psych:AAOX3, grossly no focal neurological deficits Skin: normal color, warm Results & Data Results & Data Vital Signs (Past 12 Hours) Vital Signs Temp Pulse Pulse Resp BP Pulse Ox O2 Del Method 06/20/22 11:52 36.7 C 77 16 124/71 96 Room Air 06/20/22 08:14 36.8 C 70 18 148/76 H 97 Room Air 06/20/22 07:40 69 Laboratory Results Short CBC 06/19/22 06/20/22 Range/Units 17:45 06:05 WBC 12.66 H 8.41 (4.8-10.8) K/ul Hgb 13.0 12.7 (12.0-16.0) g/dl Hct 36.9 L 35.6 L (37.0-47.0) % Plt Count 325 310 (130-400) K/uL BMP 06/19/22 06/19/22 06/20/22 17:45 22:38 06:05 Sodium 122 L 122 L 130 L Potassium 3.9 3.6 Chloride 89 L 100 Carbon Dioxide 24 22 BUN 11 8 Creatinine 0.57 L 0.59 L Glucose 141 H 100 H Calcium 8.4 L 8.2 L 06/20/22 12:05 Sodium 132 L Potassium Chloride Carbon Dioxide BUN Creatinine Glucose Calcium Liver Function 06/19/22 Range/Units 17:45 Total Bilirubin 1.6 H (0.2-1.0) mg/dl AST 22 (13-39) U/L ALT 16 (7-52) U/L Alkaline Phosphatase 54 (34-104) U/L Albumin 4.4 (3.4-5.0) gm/dl Urine 06/19/22 Range/Units 21:34 Urine Color Yellow Urine Appearance Clear (Clear) Urine pH >= 9.0 H (4.5-7.5) Ur Specific [place] 1.010 (1.000-1.030) Urine Protein Negative (Negative) Urine Glucose (UA) Negative (Negative) (2) Nausea & vomiting Vomiting type: unspecified Qualified Code(s): R11.2 - Nausea with vomiting, unspecified
[2022-06-21] MEDS ORDERED: DEXTROSE 5% 1,000 ML IV ONE (01:37)
[2022-06-21] MEDS ORDERED: DEXTROSE 5% 1,000 ML IV SCH (01:45)
[2022-06-21 04:42] LABS: Hematocrit (blood only) 38.5 % (37.0-47.0); Hemoglobin 13.1 g/dl (12.0-16.0); Mean Corpuscular Volume 85.2 fL (80.0-100.0); Mean Platelet Volume 9.3 fL (9.4-12.4); Platelet Count 309 K/uL (130-400); RDW Coefficient of Variation 12.5 % (11.5-14.5); RDW Standard Deviation 38.6 fL (36.4-46.3); Red Blood Count 4.52 M/uL (4.20-5.40); White Blood Count 6.26 K/ul (4.8-10.8)
[2022-06-21 04:58] LABS: BUN Creatinine Ratio 18.4 (10-20); Calcium 8.3 mg/dl (8.6-10.3); Est GFR (African American) 73.4 ml/min; Est GFR (Non-African American) 63.4 ml/min; Potassium 3.9 mmol/L (3.5-5.1)
[2022-06-21] MEDS: PIPERACILLIN/TAZOBACTAM 3.375 GM in DEXTROSE 5% 100 ML IV SCH (05:48)
[2022-06-21] MEDS: DOCUSATE SODIUM/SENNA 50/8.6MG TAB PO SCH (08:46)
[2022-06-21] MEDS: LOVASTATIN 20 MG TAB PO SCH (08:46)
[2022-06-21] MEDS: ENOXAPARIN INJ 40 MG/0.4 ML SYR SQ SCH (08:46)
--- NOTE | 2022-06-21 12:00 | Hospitalist Progress Note ---
Date of Service June 21, 2022 Assessment & Plan (1) Altered mental status: (2) Nausea & vomiting: (3) Acute hyponatremia: (4) Solitary kidney: (5) Hyperlipidemia: Plan: Acute metabolic encephalopathy Likely Multifactorial--hyponatremia, dehydration, suspected UTI -- CT head:No acute intracranial hemorrhage, midline shift, or mass effect. Mental status seem to be back to baseline Monitor Hypoosmolar hyponatremia Likely due to dehydration ? SIADH Sodium 122>>130>>132 Normal TSH, Nomral AM cortisol High urine osmolality, high urine sodium Sodium levels corrected with IV fluids Hypertensive urgency BP Variable Started on Lisinopril 2.5mg daily Monitor Suspected UTI/proctitis Likely proctitis secondary to constipation UTI ruled out -CT ABD:Wall thickening of the rectum, correlate for proctitis. Mild diarrheal disease. -Urine Culture negative -Discontinue Zosyn Continue bowel regimen to prevent constipation HLP on Statin DVT Px: Lovenox SQ Code Status Full code Admission and Anticipated Discharge Date Admission Date: June 19, 2022 Subjective Patient is seen and examined at bedside States feeling well today Offers no other complaints Denies any chest pain, dyspnea, dizziness, nausea, abdominal pain Mental status and sodium levels is back to normal Review of Systems Review of Systems: All systems reviewed & are unremarkable except as noted in Subjective Physical Exam Physical Exam: Physical Exam: Vitals signs as noted above General Appearance:Moderately built and nourished, no apparent distress Head: normocephalic, Atraumatic Eyes: normal inspection, EOMI Neck: supple, Trachea midline Respiratory/Chest: Normal breath sounds, CTA, No accessory muscle use Cardiovascular: S1, S2, No murmur Abdomen/GI:Soft, Non tender, Bowel sounds present Extremities/Musculoskeletal:normal inspection, no edema Neurologic/Psych:AAOX3, grossly no focal neurological deficits Skin: normal color, warm Results & Data Results & Data Vital Signs (Past 12 Hours) Vital Signs Temp Pulse Resp BP Pulse Ox O2 Del Method 06/21/22 08:09 36.6 C 61 17 131/74 96 Room Air 06/21/22 03:06 36.4 C L 71 16 106/66 96 Room Air Laboratory Results Short CBC 06/21/22 Range/Units 04:21 WBC 6.26 (4.8-10.8) K/ul Hgb 13.1 (12.0-16.0) g/dl Hct 38.5 (37.0-47.0) % Plt Count 309 (130-400) K/uL BMP 06/20/22 06/20/22 06/21/22 12:05 17:49 00:40 Sodium 132 L 131 L 137 Potassium Chloride Carbon Dioxide BUN Creatinine Glucose Calcium 06/21/22 04:21 Sodium 138 Potassium 3.9 Chloride 106 Carbon Dioxide 27 BUN 16 Creatinine 0.87 Glucose 98 Calcium 8.3 L (2) Nausea & vomiting Vomiting type: unspecified Qualified Code(s): R11.2 - Nausea with vomiting, unspecified
--- NOTE | 2022-06-21 12:16 | Discharge Summary ---
Date of Service June 21, 2022 Admission HPI Per Admitting Provider Patient is 77-year-old female with PMH dyslipidemia, osteoporosis, single kidney presented to ER with complaint of nausea, vomiting. Limited history obtained from patient secondary to her current confusion. Assistance of history from patient's [id number] who is at bedside. Reports that patient's was admitted at [facility] yesterday and had hernia surgery. Patient and sister in law were at hospital all day yesterday. Mzenib-ua-kwq reports patient seemed at her baseline yesterday and was not having any confusion. Patient states that she has been worried and stressed with her 's recent hospitalization. Does report patient had lunch and dinner yesterday reports did not drink water yesterday while here at the hospital but did have 2 cups of coffee. Today patient states that she had sudden onset of nausea and several episodes of vomiting. Patient is unable to quantify the amount of vomiting. She reports emesis appeared clear and did not notice any hematemesis. Patient concerned that she has a "blockage". She states 1 year ago had "blockage" and was seen in ER. Upon reviewing those notes patient had constipation noted on KUB and was discharged on magnesium citrate. Patient states this morning was having some lower abdominal cramping. She reports her last BM was 2 days ago. Currently with patient's confusion she is unable to tell me if she had any bowel movements today, however her [id number] reports that this morning patient said that she took magnesium citrate and had bowel movement of loose stool mixed with hard stool balls. Patient reports that she was off balance today. [id number]-zb-[id number] confirms that she was off balance when she came to pick her up today. Patient does not think she had any falls. Denies any current headache however states she thinks she had a headache yesterday that she thought was secondary to eating lunch late. Patient unable to tell me if she has any visual disturbance, loss of vision, diplopia, she just keeps saying that she was off balance today. It is unclear if patient has had dizziness or lightheadedness as when asked she keeps saying she is "off balance". Patient does not think she has had syncope or LOC. Patient does not think that she has had any extremity weakness or paresthesias but keeps repeating that she is off balance and just feels generally tired. Unable to assess if patient has had any urinary symptoms. Denies ill contacts. Denies fever/chills, diaphoresis, hematemesis, melena, hematochezia, neck pain, CP, SOB, cough, sore throat, choking, otalgia, rhinorrhea, paresthesias, extremity edema. In ER patient afebrile, vital stable. CXR: No acute infiltrate. Sodium of 122, WBC: 12.6. Negative SARS-CoV-2. No UA or CT head obtained yet. ER physician request evaluation for admission. Admission Exam Per Admitting Provider General: no distress, WDWN Head: normocephalic, atraumatic Eyes: PERRL, EOM's intact, conjunctiva non-injected, anicteric ENT: normal inspection external ears, nose, mucous membranes moist Neck: supple, trachea midline Lungs: clear, no respiratory distress, no wheezing/rhonchi/rales CV: RRR, no murmur, no pretibial edema Abd: normal BS, soft, non-tender to palpation Ext: no cyanosis, no calf tenderness Neuro: Alert, Oriented to person, place. Noted difficulty expressing her thoughts and has difficulty staying on subject. Repeats same statements. no focal deficits noted on exam, somewhat anxious affect Skin: warm, dry Principal Diagnosis Acute metabolic encephalopathy Hyponatremia Hypertensive urgency Discharge Data Allergies Allergy/AdvReac Type Severity Reaction Status Date / Time No Known Allergies Allergy Unverified 06/10/21 16:02 Consultations 06/19/22 20:04 ED Decision to Admit Stat Procedures Performed Laboratory Results WBC 6.26 K/ul (4.8-10.8) 06/21/22 04:21 RBC 4.52 M/uL (4.20-5.40) 06/21/22 04:21 Hgb 13.1 g/dl (12.0-16.0) 06/21/22 04:21 Hct 38.5 % (37.0-47.0) 06/21/22 04:21 MCV 85.2 fL (80.0-100.0) 06/21/22 04:21 MCH 29.0 pg (25.0-34.0) 06/21/22 04:21 MCHC 34.0 g/dL (32.0-36.0) 06/21/22 04:21 RDW Std Deviation 38.6 fL (36.4-46.3) 06/21/22 04:21 RDW Coeff of Laureano 12.5 % (11.5-14.5) 06/21/22 04:21 Plt Count 309 K/uL (130-400) 06/21/22 04:21 MPV 9.3 fL (9.4-12.4) L 06/21/22 04:21 Immature Gran % (Auto) 0.4 % 06/20/22 06:05 Neut % (Auto) 67.2 % 06/20/22 06:05 Lymph % (Auto) 18.8 % 06/20/22 06:05 [place] % (Auto) 12.4 % 06/20/22 06:05 Eos % (Auto) 1.0 % 06/20/22 06:05 Baso % (Auto) 0.2 % 06/20/22 06:05 Neut # (Auto) 5.66 K/uL (1.40-6.50) 06/20/22 06:05 Lymph # (Auto) 1.58 K/uL (1.2-3.4) 06/20/22 06:05 [place] # (Auto) 1.04 K/uL (0.11-0.59) H 06/20/22 06:05 Eos # (Auto) 0.08 K/uL (0-0.50) 06/20/22 06:05 Baso # (Auto) 0.02 K/uL (0-0.2) 06/20/22 06:05 Immature Gran # (Auto) 0.03 K/uL (0.01-0.20) 06/20/22 06:05 Sodium 138 mmol/L (136-145) 06/21/22 04:21 Potassium 3.9 mmol/L (3.5-5.1) 06/21/22 04:21 Chloride 106 mmol/L (98-107) 06/21/22 04:21 Carbon Dioxide 27 mmol/L (21-32) 06/21/22 04:21 Anion Gap 5 (3-11) 06/21/22 04:21 BUN 16 mg/dl (6-23) 06/21/22 04:21 Creatinine 0.87 mg/dl (0.6-1.2) 06/21/22 04:21 Est Cr Clr Drug Dosing 45.0 ml/min 06/21/22 04:21 Est GFR ( Amer) 73.4 ml/min 06/21/22 04:21 Est GFR (Non-Af Amer) 63.4 ml/min 06/21/22 04:21 BUN/Creatinine Ratio 18.4 (10-20) 06/21/22 04:21 Glucose 98 mg/dl (70-99(Fasting)) 06/21/22 04:21 Estimat Average Glucose 111 mg/dl 06/19/22 17:45 Hemoglobin A1c 5.5 % (4.5-5.6) 06/19/22 17:45 Osmolality 256 mOsm/kg (280-300) L 06/19/22 17:54 Calcium 8.3 mg/dl (8.6-10.3) L 06/21/22 04:21 Magnesium Cancelled 06/19/22 20:06 Total Bilirubin 1.6 mg/dl (0.2-1.0) H 06/19/22 17:45 AST 22 U/L (13-39) 06/19/22 17:45 ALT 16 U/L (7-52) 06/19/22 17:45 Alkaline Phosphatase 54 U/L (34-104) 06/19/22 17:45 Total Protein 6.9 gm/dl (6.0-8.3) 06/19/22 17:45 Albumin 4.4 gm/dl (3.4-5.0) 06/19/22 17:45 Globulin 2.5 gm/dl (2.5-4.0) 06/19/22 17:45 Albumin/Globulin Ratio 1.8 (0.9-2) 06/19/22 17:45 Lipase Cancelled 06/19/22 20:06 TSH 1.023 uIu/ml (0.300-4.500) 06/19/22 17:45 Cortisol AM Sample 13.03 mcg/dl (6.2-22.6) 06/21/22 07:10 Urine Color Yellow 06/19/22 21:34 Urine Appearance Clear (Clear) 06/19/22 21:34 Urine pH >= 9.0 (4.5-7.5) H 06/19/22 21:34 Ur Specific Rice 1.010 (1.000-1.030) 06/19/22 21:34 Urine Protein Negative (Negative) 06/19/22 21:34 Urine Glucose (UA) Negative (Negative) 06/19/22 21:34 Urine Ketones 1+ (Negative) H 06/19/22 21:34 Urine Blood Negative (Negative) 06/19/22 21:34 Urine Nitrite Negative (Negative) 06/19/22 21:34 Urine Bilirubin Negative (Negative) 06/19/22 21:34 Urine Urobilinogen Negative (Negative) 06/19/22 21:34 Ur Leukocyte Esterase 3+ (Negative) H 06/19/22 21:34 Urine WBC (Auto) 1-5 /hpf (0-5) 06/19/22 21:34 Urine RBC (Auto) 5-10 /hpf (0-4) H 06/19/22 21:34 U Hyaline Cast (Auto) 0 /lpf (0-5) 06/19/22 21:34 U Epithel Cells (Auto) >30 /lpf (0-5) H 06/19/22 21:34 Urine Bacteria (Auto) Negative (Negative) 06/19/22 21:34 Urine Osmolality 338 mOsm/kg (500-800) L 06/19/22 21:34 Ur Random Sodium 85 mmol/L 06/19/22 21:34 SARS-CoV-2, RNA, NAAT NEGATIVE (NEGATIVE) 06/19/22 19:36 Impressions Chest X-Ray 06/19/22 17:31 XR chest 1V not portable HISTORY: Generalized abdominal pain. bowel blockage COMPARISON: None. FINDINGS: No pneumothorax. No pleural effusions. The cardiac silhouette is top normal in size. No focal lung consolidations to suggest a pneumonia. No evidence for pulmonary edema. There are surgical clips within the left upper quadrant. IMPRESSION: No acute process. ACT 112: Negative or not required by law. Electronically signed by: Lino Burton M.D. 06/19/2022 6:22 PM Abdomen/Pelvis CT 06/19/22 21:42 Exam(s): CT ABDOMEN + PELVIS With Contrast EXAM: CT Abdomen and Pelvis With Intravenous Contrast CLINICAL HISTORY: Reason for exam: abd pain. TECHNIQUE: Axial computed tomography images of the abdomen and pelvis with intravenous contrast. CTDI is 7.51 mGy and DLP is 380.05 mGy-cm. Automated exposure control was utilized for the study. A dose lowering technique was utilized adhering to the principles of ALARA. CONTRAST: Contrast must be dictated COMPARISON: No relevant prior studies available. FINDINGS: Lung bases: Unremarkable. No mass. No consolidation. ABDOMEN: Liver: Hepatic cystic lesion in the dome measures 3.1 x 3.6 cm. Gallbladder and bile ducts: Unremarkable. No calcified stones. No ductal dilation. Pancreas: Unremarkable. No mass. No ductal dilation. Spleen: Unremarkable. No splenomegaly. Adrenals: Unremarkable. No mass. Kidneys and ureters: Left nephrectomy. Stomach and bowel: Wall thickening of the rectum, correlate for proctitis. Mild diarrheal disease. No obstruction. PELVIS: Appendix: No findings to suggest acute appendicitis. Bladder: Unremarkable. No mass. Reproductive: Unremarkable as visualized. ABDOMEN and PELVIS: Intraperitoneal space: Unremarkable. No free air. No significant fluid collection. Bones/joints: Levoconvex scoliosis. Degenerative changes of the spine. No acute fracture. No dislocation. Soft tissues: Unremarkable. Vasculature: Atherosclerotic changes of the aorta. No abdominal aortic aneurysm. Lymph nodes: Unremarkable. No enlarged lymph nodes. IMPRESSION: 1. Wall thickening of the rectum, correlate for proctitis. Mild diarrheal disease. 2. Left nephrectomy. Electronically signed by: Bubba Patton MD 06/19/22 22:[address] 06/19/22 21:42 Exam(s): CT HEAD Without Contrast EXAM: CT Head Without Intravenous Contrast CLINICAL HISTORY: Reason for exam: santana, staggering gait. TECHNIQUE: Axial computed tomography images of the head/brain without intravenous contrast. CTDI is oh 35.84 mGy and DLP is 537.48 mGy-cm. Automated exposure control was utilized for the study. A dose lowering technique was utilized adhering to the principles of ALARA. COMPARISON: No relevant prior studies available. FINDINGS: No acute intracranial hemorrhage. No midline shift or mass effect. The territorial arredondo-white matter differentiation is maintained throughout. Age-related cerebral volume loss. Periventricular and subcortical white matter hypoattenuation, consistent with chronic microangiopathy. The visualized orbits appear grossly unremarkable. The calvarium is intact. The visualized paranasal sinuses and mastoid air cells are grossly clear. IMPRESSION: No acute intracranial hemorrhage, midline shift, or mass effect. Electronically signed by: Bubba Patton MD 06/19/22 22:19 PM Ordered Studies 06/19/22 21:42 CT Abd and Pelvis [CT abd pelvis IV con only] Stat CT head/brain wo con Stat Hospital Course (1) Altered mental status: (2) Nausea & vomiting: (3) Acute hyponatremia: (4) Solitary kidney: (5) Hyperlipidemia: Acute metabolic encephalopathy Likely Multifactorial--hyponatremia, dehydration, suspected UTI -- CT head:No acute intracranial hemorrhage, midline shift, or mass effect. Mental status seem to be back to baseline Monitor Hypoosmolar hyponatremia Likely due to dehydration ? SIADH Sodium 122>>130>>132 Normal TSH, Nomral AM cortisol High urine osmolality, high urine sodium Sodium levels corrected with IV fluids Hypertensive urgency BP Variable Started on Lisinopril 2.5mg daily Monitor Suspected UTI/proctitis Likely proctitis secondary to constipation UTI ruled out -CT ABD:Wall thickening of the rectum, correlate for proctitis. Mild diarrheal disease. -Urine Culture negative -Discontinue Zosyn Continue bowel regimen to prevent constipation HLP on Statin DVT Px: Lovenox SQ Code Status Full code Total Time Total Time Spent Total Time Spent (In Minutes): 45 minutes Discharge Plan Discharge Items Patient Disposition: Home - Self-Care Reason For Visit: HYPONATREMIA Discharge Diagnosis: Acute metabolic encephalopathy Hyponatremia Hypertensive urgency Activity: Per Instructions section Exercise/Sports: Gradually increase as tolerated Non-emergency contact: Primary Care Provider Call non-emergency contact if: you have any medication questions, your symptoms worsen, your pain is concerning for you and you have a fever Follow-up/Referrals: Kathy Manriquez MD [Primary Care Provider] - Diet: Heart Healthy Addtl Attending Provider Instructions: Follow-up with your primary care physician in 1 week -- Start taking lisinopril 2.5 mg daily for better control of your blood pressure. --Monitor your blood pressure regularly at home. Seek immediate medical attention if your symptoms reoccur or worsen Please take all medications as instructed on discharge list below. Please call if you have any questions or problems. You can reach a [facility] hospitalist on duty at [facility] 24 hours a day by calling [phone] Pending Studies at Discharge: No Stand-Alone Forms: My [facility], Smoking Cessation Medications and DC Order Prescriptions: New lisinopril 2.5 mg Tablet 2.5 mg PO HS Qty: 30 0RF sennosides-docusate sodium [Senokot-S] 8.6-50 mg Tablet 1 tab PO QAM PRN (Reason: constipation) Qty: 30 0RF Continued vitamin E 200 unit Capsule 400 unit PO QAM omega-3 fatty acids [Fish Oil Concentrate] 1,000 mg Capsule 1,000 mg PO BID alendronate 70 mg tablet 70 mg PO WK Rx Instructions: Friday lovastatin 40 mg tablet 40 mg PO DAILY calcium carbonate [Calcium 500] 500 mg calcium (1,250 mg) Tablet 500 mg PO QAM cholecalciferol (vitamin D3) [Vitamin D3] 10 mcg (400 unit) Tablet 10 mcg PO QAM Glucosamine Chondroitin 550-30-1 mg Capsule 1 cap PO PM Discharge Orders: Discharge Order (Routine); Ordered 06/21/22 Ordered By: Solitario Feng Admission Data Admit Date/Time: 06/19/22 22:24 Attending Provider: Solitario Feng Admit Provider: Chris Pace Primary Care Provider: Kathy Manriquez Other Providers: Chris Pace
== END 2022-06-21 14:14 | disposition home or self-care (01) | DRG 640 ==
LOC: ED 17:15 → EDINP 22:24 → 2S 23:44